=== PATIENT | male | born 1960 | race Caucasian/White ===

== ENCOUNTER 2018-04-13 19:01 | Emergency (ER) | payer MEDICARE ==
[~2018-04-13] VITALS: Ht 182.9 cm; Wt 104.3 kg
[2018-04-13 20:27] VITALS: BP 125/74
[2018-04-13] MEDS ORDERED: diphenhdrAMINE HCL 50 MG/1 ML VL ONE (20:57)
[2018-04-13] MEDS ORDERED: methylPREDNISolone SOD SUCC 125 MG/2 ML VL ONE (20:58)
[2018-04-13] MEDS ORDERED: diphenhdrAMINE HCL 50 MG/1 ML VL IM ONE (21:00)
[2018-04-13] MEDS ORDERED: methylPREDNISolone SOD SUCC 125 MG/2 ML VL IM ONE (21:00)
== END 2018-04-13 21:10 | disposition home or self-care (01) ==
LOC: ER 19:01
DX: S50.861A Insect bite (nonvenomous) of right forearm, initial encounter (principal); L29.8 Other pruritus; R21 Rash and other nonspecific skin eruption; W57.XXXA Bitten or stung by nonvenomous insect and other nonvenomous arthropods, initial encounter; Y93.89 Activity, other specified; Y99.8 Other external cause status; Y92.89 Other specified places as the place of occurrence of the external cause
CPT/HCPCS: 96372; 99284; J1200; J2930

== ENCOUNTER → 2019-01-02 | Outpatient (CLI) | payer MEDICARE ==
[2019-01-02 13:32] LABS: Basophils # (auto) 0.1 uL; Basophils % (auto) 1.2 % (0.0-2.0); Eosinophils # (auto) 0.3 uL; Eosinophils % (auto) 4.7 % (0.0-7.0); Hematocrit 39.1 % (41.0-53.0); Hemoglobin 13.2 g/dL (13.5-17.5); Lymphocytes # (auto) 1.7 uL; Lymphocytes % (auto) 31.8 % (10.0-50.0); Mean Corpuscular Hgb Conc. 33.8 g/dL (32.0-36.0); Monocytes # (auto) 0.5 uL; Neutrophils # (auto) 2.8 uL; Neutrophils % (auto) 53.3 % (37.0-80.0); Nucleated Red Blood Cells % 0.1 %; Platelet Count (auto) 294 10^3/uL (140-450); Red Blood Cells 4.71 10^6/uL (4.5-5.90); Red Cell Distribution Width 13.4 % (11.8-14.3); White Blood Cell 5.3 10^3/uL (4.4-10.8)
[2019-01-02 13:42] LABS: Urine Bacteria NONE SEEN /hpf (None Seen); Urine Blood Negative /uL (Negative); Urine WBC 1 /hpf (0 - 3)
[2019-01-02 13:43] LABS: Albumin 3.8 g/dL (3.4-5.0); Potassium 4.4 mmol/L (3.5-5.1)
[2019-01-02 13:47] LABS: BUN/Creatinine Ratio 14.1; Bilirubin, Total 0.8 mg/dL (0.2-1.0); Total Protein 7.4 g/dL (6.4-8.2)
[2019-01-02 15:03] LABS: Free T4 (Free Thyroxine) 1.01 ng/dL (0.89-1.76)
[2019-01-02 15:04] LABS: Folate (Folic Acid) 12.92 ng/mL (5.38-24)
== END | disposition home or self-care (01) ==
LOC: LAB 12:54
PROVIDERS: ATTEND Internal Medicine
DX: E10.10 Type 1 diabetes mellitus with ketoacidosis without coma (principal)
CPT/HCPCS: 36415; 80053; 80061; 81001; 82043; 82607; 82746; 84439; 84443; 85025; 86803

== ENCOUNTER → 2019-01-31 | Day surgery (SDC) | payer MEDICARE ==
[2019-01-28 13:05] LABS: Basophils # (auto) 0.1 uL; Eosinophils # (auto) 0.2 uL; Eosinophils % (auto) 2.4 % (0.0-7.0); Hematocrit 42.7 % (41.0-53.0); Hemoglobin 14.4 g/dL (13.5-17.5); INR 0.92 (0.9-1.15); Lymphocytes # (auto) 2.3 uL; Lymphocytes % (auto) 25.7 % (10.0-50.0); Mean Corpuscular Hemoglobin 28.3 pg (28.0-32.0); Mean Corpuscular Hgb Conc. 33.8 g/dL (32.0-36.0); Mean Corpuscular Volume 83.8 fL (80.0-100.0); Monocytes # (auto) 0.7 uL; Monocytes % (auto) 8.2 % (0.0-12.0); Neutrophils # (auto) 5.6 uL; Neutrophils % (auto) 62.7 % (37.0-80.0); Partial Thromboplastin Time 25.3 sec (23.64-32.05); Platelet Count (auto) 320 10^3/uL (140-450); Red Blood Cells 5.09 10^6/uL (4.5-5.90); Red Cell Distribution Width 14.1 % (11.8-14.3)
[~2019-01-31] VITALS: Ht 182.9 cm; Wt 90.7 kg
[~2019-01-31] MED LIST: FLUMAZENIL 0.1 MG/ML INJ 10ML MDV IV ONE; METF-371 PO; NALOXONE HCL 0.4 MG/ML VIAL ONE; SODIUM CHLORIDE LOCK 10 ML ONE; diphenhdrAMINE HCL 50 MG/1 ML VL ONE
[2019-01-31] MEDS: MIDAZOLAM HCL 5 MG/ML-1ML VIAL ONE ×3 (09:20→09:29)
[2019-01-31] MEDS: fentaNYL CITRATE 100 MCG/2 ML VL ONE ×3 (09:20→09:29)
[2019-01-31 10:15] VITALS: BP 110/78
== END | disposition home or self-care (01) ==
LOC: GI 07:58
PROVIDERS: ATTEND Internal Medicine Gastroenterology
DX: Z12.11 Encounter for screening for malignant neoplasm of colon (principal); K64.8 Other hemorrhoids; E11.9 Type 2 diabetes mellitus without complications; Z79.84 Long term (current) use of oral hypoglycemic drugs
CPT/HCPCS: 36415; 82962; 85025; 85610; 85730; G0121; J1200; J2250; J3010; J7030; 99152; 99153

== ENCOUNTER 2019-02-25 17:25 | Inpatient (IN) | payer MEDICARE | END 2019-02-28 14:00 | disposition home or self-care (01) | LOC: ER 17:25 → OVERFLOW 02-26 06:05 → WEST WING 02-26 08:19 | DX: L02.811 Cutaneous abscess of head [any part, except face] (principal); E11.65 Type 2 diabetes mellitus with hyperglycemia ==

== ENCOUNTER 2021-12-14 09:33 | Inpatient (IN) | payer MEDICARE ==
[~2021-12-14] VITALS: Ht 182.9 cm; Wt 91.2 kg
[~2021-12-14 09:33] MED LIST changes: -FLUMAZENIL 0.1 MG/ML INJ 10ML MDV IV ONE; -NALOXONE HCL 0.4 MG/ML VIAL ONE; -SODIUM CHLORIDE LOCK 10 ML ONE; -diphenhdrAMINE HCL 50 MG/1 ML VL ONE
[2021-12-14] MEDS ORDERED: SODIUM CHLORIDE 0.9% 1,000 ML IVB ONE (11:45)
[2021-12-14 12:13] LABS: Basophils # (auto) 0.1 10 ^3/uL (0-0.2); Basophils % (auto) 0.7 % (0.0-2.0); Eosinophils # (auto) 0.2 10 ^3/uL (0-0.8); Eosinophils % (auto) 1.8 % (0.0-7.0); Hematocrit 36.8 % (41.0-53.0); Hemoglobin 12.3 g/dL (13.5-17.5); Lymphocytes # (auto) 1.2 10 ^3/uL (0.4-5.4); Lymphocytes % (auto) 13.6 % (10.0-50.0); Mean Corpuscular Hemoglobin 28.2 pg (28.0-32.0); Mean Corpuscular Hgb Conc. 33.5 g/dL (32.0-36.0); Mean Corpuscular Volume 84.1 fL (80.0-100.0); Monocytes # (auto) 0.9 10 ^3/uL (0-1.3); Monocytes % (auto) 10.2 % (0.0-12.0); Neutrophils # (auto) 6.3 10 ^3/uL (1.6-8.6); Neutrophils % (auto) 73.7 % (37.0-80.0); Red Blood Cells 4.37 10^6/uL (4.5-5.90); White Blood Cell 8.5 10^3/uL (4.4-10.8)
[2021-12-14 12:25] LABS: Albumin 3.5 g/dL (3.4-5.0); Calcium 9.3 mg/dL (8.5-10.1); Magnesium 2.3 mg/dL (1.6-2.6); Potassium 4.4 mmol/L (3.5-5.1)
[2021-12-14 12:28] LABS: BUN/Creatinine Ratio 13.6; Bilirubin, Total 0.9 mg/dL (0.2-1.0); Total Protein 8.1 g/dL (6.4-8.2)
[2021-12-14 14:34] LABS: Urine Bacteria FEW /hpf (None Seen); Urine Blood 1+ /uL (Negative); Urine Specific Gravity 1.031 (1.001-1.035); Urine WBC 1 /hpf (0 - 3)
[2021-12-14] MEDS ORDERED: CLINDAMYCIN 900MG IV 50 ML IV ONE (15:30)
[2021-12-14] MEDS ORDERED: ONDANSETRON HCL 4 MG/2 ML VIAL IV PRN (17:30)
[2021-12-14] MEDS ORDERED: DEXTROSE (50%) 50ML SYRG IV PRN (17:30)
[2021-12-14] MEDS ORDERED: FUROSEMIDE 100 MG/10ML VIAL IV ONE (17:45)
[2021-12-14] MEDS ORDERED: SODIUM CHLORIDE 0.9% 1,000 ML IV ONE (17:45)
[2021-12-14] MEDS ORDERED: cefTRIAXone 1GM/50ML D5W 50 ML IV ONE (17:45)
[2021-12-14] MEDS ORDERED: PIPERACILLIN-TAZOB 3.375GM 100 ML IV ONE (17:45)
[2021-12-14 19:03] LABS: INR 1.05 (0.9-1.15)
[2021-12-14 19:20] LABS: Cholesterol 133 mg/dL (< 200); HDL Cholesterol 49 mg/dL (40-59); LDL Cholesterol 83 mg/dL (< 100); Triglycerides 70 mg/dL (< 150)
[2021-12-14] MEDS: ACCU-CHEK COMFORT CURVE STRIP VI SCH (21:42)
[2021-12-14] MEDS: MORPHINE SULFATE 4 MG/ML SYR/VIAL IV PRN (21:42)
[2021-12-14 22:00] VITALS: BP 124/81
[2021-12-14] MEDS: InsuLIN REG 1unit/0.01ml Soln (100units/ml) SC SCH (22:05)
[2021-12-15] MEDS: PIPERACILLIN-TAZOB 3.375GM 100 ML IV SCH ×3 (02:28→19:00)
[2021-12-15 05:00] VITALS: BP 123/78
[2021-12-15] MEDS: ACCU-CHEK COMFORT CURVE STRIP VI SCH ×3 (06:46→18:30)
[2021-12-15] MEDS: InsuLIN REG 1unit/0.01ml Soln (100units/ml) SC SCH ×3 (06:52→18:30)
[2021-12-15 07:22] LABS: Basophils # (auto) 0.1 10 ^3/uL (0-0.2); Basophils % (auto) 1.2 % (0.0-2.0); Eosinophils # (auto) 0.2 10 ^3/uL (0-0.8); Hematocrit 35.7 % (41.0-53.0); Hemoglobin 12.1 g/dL (13.5-17.5); Lymphocytes # (auto) 1.4 10 ^3/uL (0.4-5.4); Lymphocytes % (auto) 13.7 % (10.0-50.0); Mean Corpuscular Hgb Conc. 33.7 g/dL (32.0-36.0); Mean Corpuscular Volume 82.9 fL (80.0-100.0); Monocytes % (auto) 9.7 % (0.0-12.0); Neutrophils # (auto) 7.3 10 ^3/uL (1.6-8.6); Neutrophils % (auto) 73.4 % (37.0-80.0); Red Blood Cells 4.31 10^6/uL (4.5-5.90); Red Cell Distribution Width 13.8 % (11.8-14.3); White Blood Cell 9.9 10^3/uL (4.4-10.8)
[2021-12-15 07:39] LABS: Albumin 3.2 g/dL (3.4-5.0); Potassium 4.5 mmol/L (3.5-5.1)
[2021-12-15 07:42] LABS: BUN/Creatinine Ratio 15.7; Bilirubin, Total 1.2 mg/dL (0.2-1.0); Total Protein 7.5 g/dL (6.4-8.2)
[2021-12-15] MEDS: MORPHINE SULFATE 4 MG/ML SYR/VIAL IV PRN (07:48)
[2021-12-15 08:30] VITALS: BP 132/64
[2021-12-15] MEDS ORDERED: cefTRIAXone 1GM/50ML D5W 50 ML IV SCH (09:00)
[2021-12-15] MEDS ORDERED: FUROSEMIDE 40 MG/4 ML VIAL IV SCH (10:00)
[2021-12-15] MEDS: ENOXAPARIN SOD 40 MG/0.4 ML SYRINGE SC SCH (10:27)
[2021-12-15 12:30] VITALS: BP 109/64
[2021-12-15 16:48] VITALS: BP 115/70
[2021-12-15 22:00] VITALS: BP 105/45
[2021-12-16] MEDS: ACCU-CHEK COMFORT CURVE STRIP VI SCH ×5 (00:15→22:43)
[2021-12-16] MEDS: InsuLIN REG 1unit/0.01ml Soln (100units/ml) SC SCH ×5 (00:15→22:48)
[2021-12-16] MEDS: PIPERACILLIN-TAZOB 3.375GM 100 ML IV SCH ×3 (03:36→18:40)
[2021-12-16 04:11] LABS: Alcohol, Urine < 3.0 mg/dL (0-10); Amphetamine Screen, Urine POSITIVE (NEGATIVE); Barbiturate Scree,Urine NEGATIVE (NEGATIVE); Benzodiazephine Screen, Urine NEGATIVE (NEGATIVE); Cannabinoid Screen, Urine POSITIVE (NEGATIVE); Cocaine Screen, Urine NEGATIVE (NEGATIVE); Phencyclidine Screen, Urine NEGATIVE (NEGATIVE)
[2021-12-16 04:18] LABS: Opiate Scree,Urine NEGATIVE (NEGATIVE)
[2021-12-16 08:05] VITALS: BP 138/96
[2021-12-16] MEDS: ENOXAPARIN SOD 40 MG/0.4 ML SYRINGE SC SCH (09:50)
[2021-12-16 11:55] VITALS: BP 107/63
[2021-12-16 16:05] VITALS: BP 115/77
[2021-12-16] MEDS ORDERED: PROPOFOL 10 MG/ML 20 ML IV ONE (16:27)
[2021-12-16] MEDS ORDERED: MIDAZOLAM HCL 2MG/2ML 2ml VIAL (1mg/ml) ONE (16:27)
[2021-12-16] MEDS ORDERED: GLYCOPYRROLATE 0.2 MG/ML 1ML VIAL ONE (16:27)
[2021-12-16] MEDS ORDERED: KETAMINE HCL 10 ML ONE (16:27)
[2021-12-16] MEDS ORDERED: ONDANSETRON HCL 4 MG/2 ML VIAL ONE (16:27)
[2021-12-16] MEDS ORDERED: ceFAZolin 1GM/50ML 100 ML IV ONE (16:45)
[2021-12-16] MEDS ORDERED: BUPIVACAINE HCL 50 ML ONE (16:55)
[2021-12-16] MEDS ORDERED: ceFAZolin 1GM VL ONE (16:55)
[2021-12-16] MEDS ORDERED: NEOMYCIN-BACITRACIN-POLYM 15GM TOP OINT TOP ONE (17:36)
[2021-12-16] MEDS ORDERED: ACCU-CHEK COMFORT CURVE STRIP VI ONE (18:00)
[2021-12-16] MEDS ORDERED: ONDANSETRON HCL 4 MG/2 ML VIAL IV PRN (18:00)
[2021-12-16] MEDS ORDERED: HYDROmorphone HCL 2 MG/ML VL IV PRN (18:00)
[2021-12-16 21:32] VITALS: BP 110/75
[2021-12-17] MEDS: PIPERACILLIN-TAZOB 3.375GM 100 ML IV SCH ×3 (02:15→18:31)
[2021-12-17 05:00] VITALS: BP 97/51
[2021-12-17] MEDS: InsuLIN REG 1unit/0.01ml Soln (100units/ml) SC SCH ×3 (06:36→16:55)
[2021-12-17] MEDS: ACCU-CHEK COMFORT CURVE STRIP VI SCH ×3 (06:36→16:50)
[2021-12-17 08:00] VITALS: BP 124/77
[2021-12-17] MEDS: ENOXAPARIN SOD 40 MG/0.4 ML SYRINGE SC SCH (08:10)
[2021-12-17 12:00] VITALS: BP 121/68
[2021-12-17 16:10] VITALS: BP 103/55
[2021-12-17 22:00] VITALS: BP 129/75
[2021-12-18] MEDS: ACCU-CHEK COMFORT CURVE STRIP VI SCH ×5 (01:18→22:01)
[2021-12-18] MEDS: InsuLIN REG 1unit/0.01ml Soln (100units/ml) SC SCH ×5 (01:26→22:02)
[2021-12-18 05:00] VITALS: BP 115/70
[2021-12-18] MEDS: PIPERACILLIN-TAZOB 3.375GM 100 ML IV SCH ×3 (05:00→18:00)
[2021-12-18] MEDS: ENOXAPARIN SOD 40 MG/0.4 ML SYRINGE SC SCH (09:41)
[2021-12-18] MEDS ORDERED: INSULIN LANTUS (GLARGINE) 1 /0.01ml (100units/ml) SC ONE (15:30)
[2021-12-18 17:00] VITALS: BP 132/78
[2021-12-18 22:00] VITALS: BP 121/70
[2021-12-19] MEDS: PIPERACILLIN-TAZOB 3.375GM 100 ML IV SCH ×3 (02:41→18:10)
[2021-12-19 05:00] VITALS: BP 115/76
[2021-12-19 05:15] LABS: Basophils # (auto) 0.1 10 ^3/uL (0-0.2); Basophils % (auto) 0.5 % (0.0-2.0); Eosinophils # (auto) 0.2 10 ^3/uL (0-0.8); Eosinophils % (auto) 2.2 % (0.0-7.0); Hematocrit 35.3 % (41.0-53.0); Hemoglobin 11.8 g/dL (13.5-17.5); Lymphocytes # (auto) 1.4 10 ^3/uL (0.4-5.4); Lymphocytes % (auto) 13.2 % (10.0-50.0); Mean Corpuscular Hemoglobin 27.6 pg (28.0-32.0); Mean Corpuscular Hgb Conc. 33.3 g/dL (32.0-36.0); Mean Corpuscular Volume 82.8 fL (80.0-100.0); Monocytes # (auto) 1.3 10 ^3/uL (0-1.3); Monocytes % (auto) 12.2 % (0.0-12.0); Neutrophils # (auto) 7.8 10 ^3/uL (1.6-8.6); Neutrophils % (auto) 71.9 % (37.0-80.0); Nucleated Red Blood Cells % 0.1 %; Red Blood Cells 4.27 10^6/uL (4.5-5.90); Red Cell Distribution Width 13.9 % (11.8-14.3); White Blood Cell 10.9 10^3/uL (4.4-10.8)
[2021-12-19 05:47] LABS: Potassium 4.3 mmol/L (3.5-5.1)
[2021-12-19 05:53] LABS: BUN/Creatinine Ratio 14.3; Calcium 8.8 mg/dL (8.5-10.1)
[2021-12-19] MEDS: InsuLIN REG 1unit/0.01ml Soln (100units/ml) SC SCH ×4 (06:51→22:15)
[2021-12-19] MEDS: INSULIN LANTUS (GLARGINE) 1 /0.01ml (100units/ml) SC SCH (06:52)
[2021-12-19] MEDS: ACCU-CHEK COMFORT CURVE STRIP VI SCH ×4 (07:00→22:09)
[2021-12-19 09:00] VITALS: BP 115/70
[2021-12-19] MEDS: ENOXAPARIN SOD 40 MG/0.4 ML SYRINGE SC SCH (11:02)
[2021-12-19 13:00] VITALS: BP 101/61
[2021-12-19 13:38] LABS: Hepatitis C Antibody Negative (Negative)
[2021-12-19] MEDS ORDERED: ERGOCALCIFEROL 50,000 UNIT(1.25MG) CAP PO SCH (14:00)
[2021-12-19 14:33] LABS: INR 1.12 (0.9-1.15); Partial Thromboplastin Time 32.5 sec (23.6-33.0)
[2021-12-19 17:00] VITALS: BP 111/64
[2021-12-19] MEDS ORDERED: HYDROcodone-ACET 5/325MG TAB PO PRN (21:00)
[2021-12-19 22:00] VITALS: BP 106/62
[2021-12-20] MEDS: PIPERACILLIN-TAZOB 3.375GM 100 ML IV SCH ×2 (03:09→11:21)
[2021-12-20 04:33] VITALS: BP 102/65
[2021-12-20] MEDS: ACCU-CHEK COMFORT CURVE STRIP VI SCH ×3 (06:30→17:00)
[2021-12-20] MEDS: InsuLIN REG 1unit/0.01ml Soln (100units/ml) SC SCH ×3 (06:30→17:00)
[2021-12-20] MEDS: INSULIN LANTUS (GLARGINE) 1 /0.01ml (100units/ml) SC SCH (06:31)
[2021-12-20 08:45] VITALS: BP 108/67
[2021-12-20] MEDS: ENOXAPARIN SOD 40 MG/0.4 ML SYRINGE SC SCH (11:20)
[2021-12-20] MEDS ORDERED: LIDOCAINE 1% (LOCAL ANESTH.) PF 5ml SDV ID ONE (14:45)
[2021-12-20 16:23] VITALS: BP 113/76
[2021-12-20 16:35] VITALS: BP 131/76
[2021-12-20] MEDS ORDERED: SODIUM CHLOR 0.9% PF (SALINE LOCK) 10ML VIAL/SYR IV SCH (22:00)
== END 2021-12-20 18:13 | DRG 617 ==
LOC: ER 09:33 → WEST WING 17:25
PROVIDERS: ADMIT Registered Nurse; ATTEND Internal Medicine
PROC: 0Y6P0Z3 Detachment at Right 1st Toe, Low, Open Approach (ICD-10-PCS; principal; 2021-12-20)
PROC: 05HB33Z Insertion of Infusion Device into Right Basilic Vein, Percutaneous Approach (ICD-10-PCS; 2021-12-20)
DX: E11.621 Type 2 diabetes mellitus with foot ulcer (principal); L03.115 Cellulitis of right lower limb; M86.8X7 Other osteomyelitis, ankle and foot; L03.116 Cellulitis of left lower limb; H91.93 Unspecified hearing loss, bilateral; M19.90 Unspecified osteoarthritis, unspecified site; E11.65 Type 2 diabetes mellitus with hyperglycemia; E55.9 Vitamin D deficiency, unspecified; E11.69 Type 2 diabetes mellitus with other specified complication; F12.90 Cannabis use, unspecified, uncomplicated; J44.9 Chronic obstructive pulmonary disease, unspecified; L97.519 Non-pressure chronic ulcer of other part of right foot with unspecified severity; F19.10 Other psychoactive substance abuse, uncomplicated; Z91.19 Patient's noncompliance with other medical treatment and regimen; Z20.822 Contact with and (suspected) exposure to COVID-19
CPT/HCPCS: 36415; 36569; 71046; 73630; 73718; 80048; 80053; 80061; 80307; 81001; 82306; 82962; 83036; 83605; 83690; 83735; 83880; 84443; 85025; 85610; 85730; 86803; 87040; 87070; 87075; 87077; 87186; 87205; 87340; 93005; 96361; 96365; G0378; J0690; J1815; J2250; J2405; J2543; J2704; J3490

== ENCOUNTER 2021-12-21 22:42 | Emergency (ER) | payer MEDICARE ==
[~2021-12-21] VITALS: Ht 182.9 cm; Wt 93.4 kg
[2021-12-22] MEDS ORDERED: KETOROLAC TROMETH 60MG/2ML VIAL IM ONE (00:15)
[2021-12-22 09:00] VITALS: BP 114/77
== END 2021-12-22 10:42 | disposition home or self-care (01) ==
LOC: EDBD 22:42 → ER 22:42
DX: M25.511 Pain in right shoulder (principal)
CPT/HCPCS: 96372; 99285; J1885

== ENCOUNTER 2022-01-24 17:59 | Inpatient (IN) | payer MEDICARE ==
[~2022-01-24] VITALS: Ht 185.4 cm; Wt 92.6 kg
[2022-01-24 19:34] LABS: Basophils # (auto) 0.1 10 ^3/uL (0-0.2); Basophils % (auto) 1.1 % (0.0-2.0); Eosinophils # (auto) 0.2 10 ^3/uL (0-0.8); Eosinophils % (auto) 3.9 % (0.0-7.0); Hematocrit 34.5 % (41.0-53.0); Hemoglobin 11.7 g/dL (13.5-17.5); Lymphocytes # (auto) 1.4 10 ^3/uL (0.4-5.4); Lymphocytes % (auto) 22.7 % (10.0-50.0); Mean Corpuscular Hemoglobin 27.5 pg (28.0-32.0); Mean Corpuscular Hgb Conc. 33.9 g/dL (32.0-36.0); Mean Corpuscular Volume 81.3 fL (80.0-100.0); Monocytes # (auto) 0.7 10 ^3/uL (0-1.3); Monocytes % (auto) 10.9 % (0.0-12.0); Neutrophils # (auto) 3.8 10 ^3/uL (1.6-8.6); Neutrophils % (auto) 61.4 % (37.0-80.0); Nucleated Red Blood Cells % 0.1 %; Red Blood Cells 4.24 10^6/uL (4.5-5.90); Red Cell Distribution Width 14.3 % (11.8-14.3); White Blood Cell 6.2 10^3/uL (4.4-10.8)
[2022-01-24 19:49] LABS: Albumin 3.6 g/dL (3.4-5.0); Potassium 4.5 mmol/L (3.5-5.1)
[2022-01-24 19:53] LABS: Bilirubin, Total 1.8 mg/dL (0.2-1.0); Total Protein 7.7 g/dL (6.4-8.2)
[2022-01-24 21:28] LABS: INR 1.07 (0.9-1.15)
[2022-01-25] MEDS ORDERED: VANCOMYCIN 1GM/250ML 250 ML IV ONE ×2 (01:30→17:06)
[2022-01-25] MEDS ORDERED: cefTRIAXone 1GM/50ML D5W 50 ML IV ONE (01:30)
[2022-01-25] MEDS ORDERED: ONDANSETRON HCL 4 MG/2 ML VIAL IV PRN (02:00)
[2022-01-25] MEDS ORDERED: VANCOMYCIN PER PHARMACY 0 MG IV SCH (02:00)
[2022-01-25] MEDS ORDERED: DEXTROSE (50%) 50ML SYRG IV PRN (02:00)
[2022-01-25] MEDS: SODIUM CHLORIDE 0.9% 1,000 ML IV SCH ×2 (02:28→04:57)
[2022-01-25 04:29] LABS: Urine Bacteria NONE SEEN /hpf (None Seen); Urine Blood 2+ /uL (Negative); Urine Mucus FEW (None Seen); Urine Specific Gravity 1.024 (1.001-1.035); Urine WBC 1 /hpf (0 - 3)
[2022-01-25] MEDS ORDERED: LEVO-28 PO (04:31)
[2022-01-25 05:00] VITALS: BP 113/71
[2022-01-25 05:11] VITALS: BP 113/71
[2022-01-25] MEDS ORDERED: INSREG3 SC (05:13)
[2022-01-25] MEDS: ACCU-CHEK COMFORT CURVE STRIP VI SCH ×3 (06:00→17:22)
[2022-01-25] MEDS: InsuLIN REG 1unit/0.01ml Soln (100units/ml) SC SCH ×3 (06:58→17:22)
[2022-01-25] MEDS: PANTOPRAZOLE 40 MG/10 ML VIAL INJ IV SCH (08:54)
[2022-01-25 09:00] VITALS: BP 119/78
[2022-01-25] MEDS: ceFAZolin 1GM VL ONE ×2 (09:08→10:20)
[2022-01-25] MEDS: ROPIVACAINE 0.5% (5MG/ML) 20ML AMPULE IJ ONE ×2 (09:09→10:15)
[2022-01-25] MEDS: ceFAZolin 1GM/50ML 100 ML IV ONE ×2 (09:23→09:31)
[2022-01-25] MEDS ORDERED: MEPERIDINE HCL (25 MG/ML) 1ML VIAL ONE (09:35)
[2022-01-25] MEDS ORDERED: MIDAZOLAM HCL 2MG/2ML 2ml VIAL (1mg/ml) ONE (09:36)
[2022-01-25] MEDS ORDERED: fentaNYL CITRATE 100 MCG/2 ML VL ONE (09:36)
[2022-01-25] MEDS ORDERED: DexAMETHasone SOD PHOS 10MG/1ML VIAL INJ ONE (10:09)
[2022-01-25] MEDS ORDERED: PROPOFOL 10 MG/ML 20 ML IV ONE (10:09)
[2022-01-25] MEDS ORDERED: NEOMYCIN-BACITRACIN-POLYM 15GM TOP OINT TOP ONE (10:12)
[2022-01-25] MEDS ORDERED: PHENYLEPHRINE HCL 10 MG/ML VL IV ONE (12:47)
[2022-01-25 13:34] LABS: Basophils # (auto) 0.1 10 ^3/uL (0-0.2); Basophils % (auto) 1.9 % (0.0-2.0); Eosinophils # (auto) 0.2 10 ^3/uL (0-0.8); Eosinophils % (auto) 3.7 % (0.0-7.0); Hematocrit 32.7 % (41.0-53.0); Lymphocytes # (auto) 1.2 10 ^3/uL (0.4-5.4); Lymphocytes % (auto) 22.7 % (10.0-50.0); Mean Corpuscular Hemoglobin 27.3 pg (28.0-32.0); Mean Corpuscular Hgb Conc. 33.7 g/dL (32.0-36.0); Monocytes # (auto) 0.7 10 ^3/uL (0-1.3); Monocytes % (auto) 12.1 % (0.0-12.0); Neutrophils # (auto) 3.3 10 ^3/uL (1.6-8.6); Neutrophils % (auto) 59.6 % (37.0-80.0); Nucleated Red Blood Cells % 0.1 %; Red Blood Cells 4.04 10^6/uL (4.5-5.90); Red Cell Distribution Width 14.1 % (11.8-14.3); White Blood Cell 5.5 10^3/uL (4.4-10.8)
[2022-01-25] MEDS: VANCOMYCIN 1GM/250ML 250 ML IV SCH (17:18)
[2022-01-25 17:51] VITALS: BP 132/74
[2022-01-25] MEDS: MORPHINE SULFATE INJ 2 MG/ml SYRG IV PRN (19:20)
[2022-01-25 22:00] VITALS: BP 119/63
[2022-01-25] MEDS ORDERED: cefTRIAXone 1GM/50ML D5W 50 ML IV SCH (22:00)
[2022-01-26] MEDS: ACCU-CHEK COMFORT CURVE STRIP VI SCH ×5 (00:23→23:38)
[2022-01-26] MEDS: InsuLIN REG 1unit/0.01ml Soln (100units/ml) SC SCH ×5 (00:24→23:38)
[2022-01-26] MEDS: SODIUM CHLORIDE 0.9% 1,000 ML IV SCH ×2 (03:54→17:58)
[2022-01-26] MEDS: VANCOMYCIN 1GM/250ML 250 ML IV SCH ×2 (04:37→17:41)
[2022-01-26 05:00] VITALS: BP 122/72
[2022-01-26 06:00] LABS: Basophils # (auto) 0.1 10 ^3/uL (0-0.2); Basophils % (auto) 0.6 % (0.0-2.0); Eosinophils # (auto) 0.2 10 ^3/uL (0-0.8); Eosinophils % (auto) 1.7 % (0.0-7.0); Hematocrit 32.8 % (41.0-53.0); Hemoglobin 11.3 g/dL (13.5-17.5); Lymphocytes % (auto) 10.3 % (10.0-50.0); Mean Corpuscular Hemoglobin 27.9 pg (28.0-32.0); Mean Corpuscular Hgb Conc. 34.5 g/dL (32.0-36.0); Mean Corpuscular Volume 80.8 fL (80.0-100.0); Monocytes # (auto) 1.1 10 ^3/uL (0-1.3); Monocytes % (auto) 11.8 % (0.0-12.0); Neutrophils # (auto) 7.1 10 ^3/uL (1.6-8.6); Neutrophils % (auto) 75.6 % (37.0-80.0); Nucleated Red Blood Cells % 0.1 %; Red Blood Cells 4.06 10^6/uL (4.5-5.90); Red Cell Distribution Width 14.1 % (11.8-14.3); White Blood Cell 9.5 10^3/uL (4.4-10.8)
[2022-01-26 06:18] LABS: Albumin 2.9 g/dL (3.4-5.0); BUN/Creatinine Ratio 14.3; Calcium 8.5 mg/dL (8.5-10.1); Potassium 4.8 mmol/L (3.5-5.1)
[2022-01-26 06:21] LABS: Bilirubin, Total 0.9 mg/dL (0.2-1.0); Total Protein 6.7 g/dL (6.4-8.2)
[2022-01-26] MEDS: PANTOPRAZOLE 40 MG/10 ML VIAL INJ IV SCH (08:15)
[2022-01-26 08:30] VITALS: BP 110/70
[2022-01-26] MEDS: MORPHINE SULFATE INJ 2 MG/ml SYRG IV PRN ×2 (08:49→14:08)
[2022-01-26 12:30] VITALS: BP 120/75
[2022-01-26] MEDS ORDERED: LIDOCAINE 1% (LOCAL ANESTH.) PF 5ml SDV ID ONE (12:45)
[2022-01-26 16:30] VITALS: BP 127/86
[2022-01-26 22:00] VITALS: BP 106/66
[2022-01-26] MEDS: SODIUM CHLOR 0.9% PF (SALINE LOCK) 10ML VIAL/SYR IV SCH (22:00)
[2022-01-26] MEDS: CEFTRIAXONE SODIUM 2 GM in D5W 5% 50 ML IV SCH (23:23)
[2022-01-27] MEDS: VANCOMYCIN 1GM/250ML 250 ML IV SCH ×3 (03:08→23:11)
[2022-01-27 05:00] VITALS: BP 98/59
[2022-01-27] MEDS: ACCU-CHEK COMFORT CURVE STRIP VI SCH ×3 (06:00→17:04)
[2022-01-27] MEDS: InsuLIN REG 1unit/0.01ml Soln (100units/ml) SC SCH ×3 (06:35→17:10)
[2022-01-27] MEDS: PANTOPRAZOLE 40 MG/10 ML VIAL INJ IV SCH (09:33)
[2022-01-27] MEDS: SODIUM CHLOR 0.9% PF (SALINE LOCK) 10ML VIAL/SYR IV SCH ×2 (09:34→21:46)
[2022-01-27] MEDS: SODIUM CHLORIDE 0.9% 1,000 ML IV SCH ×2 (09:35→21:58)
[2022-01-27 13:00] VITALS: BP 127/82
[2022-01-27 17:00] VITALS: BP 146/82
[2022-01-27] MEDS: MORPHINE SULFATE INJ 2 MG/ml SYRG IV PRN (20:23)
[2022-01-27] MEDS ORDERED: cefTRIAXone 1GM/50ML D5W 0 ML IV ONE (21:49)
[2022-01-27] MEDS: CEFTRIAXONE SODIUM 2 GM in D5W 5% 50 ML IV SCH (21:51)
[2022-01-27 22:00] VITALS: BP 112/66
[2022-01-28] MEDS: InsuLIN REG 1unit/0.01ml Soln (100units/ml) SC SCH ×5 (00:54→23:25)
[2022-01-28 05:00] VITALS: BP 110/67
[2022-01-28] MEDS: ACCU-CHEK COMFORT CURVE STRIP VI SCH ×5 (06:13→23:24)
[2022-01-28 08:00] VITALS: BP 100/50
[2022-01-28] MEDS: SODIUM CHLOR 0.9% PF (SALINE LOCK) 10ML VIAL/SYR IV SCH ×2 (08:41→23:24)
[2022-01-28] MEDS: VANCOMYCIN 1GM/250ML 250 ML IV SCH ×2 (08:41→18:58)
[2022-01-28] MEDS: SODIUM CHLORIDE 0.9% 1,000 ML IV SCH ×2 (08:41→23:39)
[2022-01-28] MEDS: PANTOPRAZOLE 40 MG/10 ML VIAL INJ IV SCH (08:41)
[2022-01-28 12:00] VITALS: BP 112/65
[2022-01-28] MEDS: MORPHINE SULFATE INJ 2 MG/ml SYRG IV PRN (14:32)
[2022-01-28 16:00] VITALS: BP 98/55
[2022-01-28 22:00] VITALS: BP 115/70
[2022-01-28] MEDS: CEFTRIAXONE SODIUM 2 GM in D5W 5% 50 ML IV SCH (23:24)
[2022-01-29] MEDS: VANCOMYCIN 1GM/250ML 250 ML IV SCH ×2 (04:57→15:00)
[2022-01-29 05:00] VITALS: BP 124/79
[2022-01-29] MEDS: InsuLIN REG 1unit/0.01ml Soln (100units/ml) SC SCH ×4 (06:00→23:18)
[2022-01-29] MEDS: ACCU-CHEK COMFORT CURVE STRIP VI SCH ×4 (06:37→23:17)
[2022-01-29 08:00] VITALS: BP 103/62
[2022-01-29] MEDS: SODIUM CHLOR 0.9% PF (SALINE LOCK) 10ML VIAL/SYR IV SCH ×2 (10:25→21:08)
[2022-01-29] MEDS: PANTOPRAZOLE 40 MG/10 ML VIAL INJ IV SCH (10:25)
[2022-01-29 12:00] VITALS: BP 118/64
[2022-01-29] MEDS: SODIUM CHLORIDE 0.9% 1,000 ML IV SCH (12:51)
[2022-01-29 16:00] VITALS: BP 117/65
[2022-01-29] MEDS: CEFTRIAXONE SODIUM 2 GM in D5W 5% 50 ML IV SCH (21:08)
[2022-01-29 22:00] VITALS: BP 109/70
[2022-01-30] MEDS: SODIUM CHLORIDE 0.9% 1,000 ML IV SCH ×2 (00:01→15:20)
[2022-01-30] MEDS: VANCOMYCIN 1GM/250ML 250 ML IV SCH ×3 (00:01→20:51)
[2022-01-30 05:00] VITALS: BP 127/76
[2022-01-30] MEDS: ACCU-CHEK COMFORT CURVE STRIP VI SCH ×3 (05:05→17:08)
[2022-01-30] MEDS: InsuLIN REG 1unit/0.01ml Soln (100units/ml) SC SCH ×3 (05:06→17:07)
[2022-01-30] MEDS: PANTOPRAZOLE 40 MG/10 ML VIAL INJ IV SCH (09:40)
[2022-01-30] MEDS: SODIUM CHLOR 0.9% PF (SALINE LOCK) 10ML VIAL/SYR IV SCH ×2 (09:42→21:09)
[2022-01-30 13:00] VITALS: BP 117/65
[2022-01-30 22:00] VITALS: BP 114/74
[2022-01-30] MEDS: CEFTRIAXONE SODIUM 2 GM in D5W 5% 50 ML IV SCH (22:13)
[2022-01-31] MEDS: ACCU-CHEK COMFORT CURVE STRIP VI SCH ×5 (00:24→23:45)
[2022-01-31] MEDS: InsuLIN REG 1unit/0.01ml Soln (100units/ml) SC SCH ×4 (00:25→17:57)
[2022-01-31] MEDS: SODIUM CHLORIDE 0.9% 1,000 ML IV SCH ×2 (04:40→17:48)
[2022-01-31 05:00] VITALS: BP 144/81
[2022-01-31 05:04] LABS: Basophils # (auto) 0 10 ^3/uL (0-0.2); Basophils % (auto) 0.8 % (0.0-2.0); Eosinophils # (auto) 0.3 10 ^3/uL (0-0.8); Eosinophils % (auto) 4.3 % (0.0-7.0); Hemoglobin 10.5 g/dL (13.5-17.5); Lymphocytes # (auto) 1.3 10 ^3/uL (0.4-5.4); Lymphocytes % (auto) 21.7 % (10.0-50.0); Mean Corpuscular Hemoglobin 27.2 pg (28.0-32.0); Mean Corpuscular Hgb Conc. 33.8 g/dL (32.0-36.0); Mean Corpuscular Volume 80.5 fL (80.0-100.0); Monocytes # (auto) 0.7 10 ^3/uL (0-1.3); Monocytes % (auto) 11.3 % (0.0-12.0); Neutrophils # (auto) 3.8 10 ^3/uL (1.6-8.6); Neutrophils % (auto) 61.9 % (37.0-80.0); Nucleated Red Blood Cells % 0.1 %; Red Blood Cells 3.85 10^6/uL (4.5-5.90); Red Cell Distribution Width 14.1 % (11.8-14.3); White Blood Cell 6.1 10^3/uL (4.4-10.8)
[2022-01-31 05:18] LABS: Potassium 3.9 mmol/L (3.5-5.1)
[2022-01-31 05:24] LABS: BUN/Creatinine Ratio 17.6; Calcium 8.8 mg/dL (8.5-10.1)
[2022-01-31 09:00] VITALS: BP 112/70
[2022-01-31 13:00] VITALS: BP 112/60
[2022-01-31] MEDS: SODIUM CHLOR 0.9% PF (SALINE LOCK) 10ML VIAL/SYR IV SCH ×2 (13:10→22:20)
[2022-01-31] MEDS: VANCOMYCIN 1GM/250ML 250 ML IV SCH (17:47)
[2022-01-31 22:00] VITALS: BP 126/89
[2022-01-31] MEDS: CEFTRIAXONE SODIUM 2 GM in D5W 5% 50 ML IV SCH (22:29)
[2022-02-01] MEDS: MORPHINE SULFATE INJ 2 MG/ml SYRG IV PRN (00:29)
[2022-02-01] MEDS: InsuLIN REG 1unit/0.01ml Soln (100units/ml) SC SCH ×5 (00:29→23:51)
[2022-02-01 05:00] VITALS: BP 115/69
[2022-02-01] MEDS: ACCU-CHEK COMFORT CURVE STRIP VI SCH ×4 (05:24→23:44)
[2022-02-01] MEDS: SODIUM CHLORIDE 0.9% 1,000 ML IV SCH ×2 (06:44→20:40)
[2022-02-01 08:45] LABS: BUN/Creatinine Ratio 19.6; Calcium 8.8 mg/dL (8.5-10.1); Potassium 4.2 mmol/L (3.5-5.1)
[2022-02-01 09:00] VITALS: BP 126/73
[2022-02-01] MEDS: SODIUM CHLOR 0.9% PF (SALINE LOCK) 10ML VIAL/SYR IV SCH ×2 (10:17→22:01)
[2022-02-01 13:49] VITALS: BP 135/87
[2022-02-01 17:00] VITALS: BP 129/76
[2022-02-01] MEDS: VANCOMYCIN 1GM/250ML 250 ML IV SCH (17:56)
[2022-02-01 22:00] VITALS: BP 115/69
[2022-02-01] MEDS: CEFTRIAXONE SODIUM 2 GM in D5W 5% 50 ML IV SCH (22:01)
[2022-02-02 05:00] VITALS: BP 114/72
[2022-02-02] MEDS: ACCU-CHEK COMFORT CURVE STRIP VI SCH (05:28)
[2022-02-02] MEDS: InsuLIN REG 1unit/0.01ml Soln (100units/ml) SC SCH (05:28)
[2022-02-02 09:00] VITALS: BP 118/75
[2022-02-02] MEDS ORDERED: CEFTRIAXONE SODIUM 2 GM in D5W 5% 50 ML IV ONE (09:00)
[2022-02-02] MEDS ORDERED: ROC2INJ10 IV (09:41)
[2022-02-03] MEDS ORDERED: CEFTRIAXONE SODIUM 2 GM in D5W 5% 50 ML IV SCH (10:00)
== END 2022-02-02 11:42 | disposition home health service (06) | DRG 856 ==
LOC: ER 17:59 → OVERFLOW 01-25 01:54 → CENTRAL 01-25 04:24
PROVIDERS: ADMIT Nurse Practitioner; ATTEND Family Medicine
PROC: 0Y6P0Z0 Detachment at Right 1st Toe, Complete, Open Approach (ICD-10-PCS; principal; 2022-01-25 09:50)
PROC: 02HV33Z Insertion of Infusion Device into Superior Vena Cava, Percutaneous Approach (ICD-10-PCS; 2022-01-26)
PROC: B548ZZA Ultrasonography of Superior Vena Cava, Guidance (ICD-10-PCS; 2022-01-26)
DX: T81.49XA Infection following a procedure, other surgical site, initial encounter (principal); N17.0 Acute kidney failure with tubular necrosis; E44.0 Moderate protein-calorie malnutrition; M86.8X7 Other osteomyelitis, ankle and foot; Y83.5 Amputation of limb(s) as the cause of abnormal reaction of the patient, or of later complication, without mention of misadventure at the time of the procedure; E11.69 Type 2 diabetes mellitus with other specified complication; E11.22 Type 2 diabetes mellitus with diabetic chronic kidney disease; I12.9 Hypertensive chronic kidney disease with stage 1 through stage 4 chronic kidney disease, or unspecified chronic kidney disease; J44.9 Chronic obstructive pulmonary disease, unspecified; N18.9 Chronic kidney disease, unspecified; S91.301A Unspecified open wound, right foot, initial encounter; L08.9 Local infection of the skin and subcutaneous tissue, unspecified; Z20.822 Contact with and (suspected) exposure to COVID-19; E11.40 Type 2 diabetes mellitus with diabetic neuropathy, unspecified; Z68.26 Body mass index [BMI] 26.0-26.9, adult; X58.XXXA Exposure to other specified factors, initial encounter; Z89.421 Acquired absence of other right toe(s); Y93.89 Activity, other specified; Y92.89 Other specified places as the place of occurrence of the external cause; Y99.8 Other external cause status; Z79.84 Long term (current) use of oral hypoglycemic drugs
CPT/HCPCS: 36415; 36569; 71045; 73630; 80048; 80053; 80202; 81001; 82565; 82962; 83605; 84484; 85025; 85610; 85652; 86141; 87040; 87070; 87075; 87205; 93005; 96365; C9113; G0378; J0690; J0696; J1100; J1815; J2250; J2405; J2704; J7060

== ENCOUNTER 2022-04-16 21:27 | Inpatient (IN) | payer MEDICARE ==
[~2022-04-16] VITALS: Ht 182.9 cm; Wt 91.5 kg
[~2022-04-16 21:27] MED LIST changes: +INSREG3 SC; +LEVO-28 PO; +ROC2INJ10 IV
[2022-04-16 22:50] LABS: Basophils # (auto) 0.2 10 ^3/uL (0-0.2); Basophils % (auto) 2.1 % (0.0-2.0); Eosinophils # (auto) 0.2 10 ^3/uL (0-0.8); Eosinophils % (auto) 1.7 % (0.0-7.0); Hematocrit 32.6 % (41.0-53.0); Hemoglobin 10.7 g/dL (13.5-17.5); Lymphocytes # (auto) 0.9 10 ^3/uL (0.4-5.4); Lymphocytes % (auto) 8.3 % (10.0-50.0); Mean Corpuscular Hemoglobin 27.2 pg (28.0-32.0); Mean Corpuscular Hgb Conc. 32.7 g/dL (32.0-36.0); Mean Corpuscular Volume 83.1 fL (80.0-100.0); Monocytes # (auto) 1.3 10 ^3/uL (0-1.3); Monocytes % (auto) 12.2 % (0.0-12.0); Neutrophils # (auto) 7.9 10 ^3/uL (1.6-8.6); Neutrophils % (auto) 75.7 % (37.0-80.0); Red Blood Cells 3.92 10^6/uL (4.5-5.90); Red Cell Distribution Width 14.9 % (11.8-14.3); White Blood Cell 10.4 10^3/uL (4.4-10.8)
[2022-04-16 23:04] LABS: Albumin 3.4 g/dL (3.4-5.0); BUN/Creatinine Ratio 23.6; Calcium 8.8 mg/dL (8.5-10.1); Potassium 5.5 mmol/L (3.5-5.1)
[2022-04-16 23:07] LABS: Bilirubin, Total 0.9 mg/dL (0.2-1.0); Total Protein 8.3 g/dL (6.4-8.2)
[2022-04-16 23:30] LABS: CRP High Sensitivity 14.3 mg/dL (< 0.3)
[2022-04-17] MEDS ORDERED: PIPERACILLIN-TAZOB 3.375GM 100 ML IV ONE (00:45)
[2022-04-17] MEDS ORDERED: VANCOMYCIN 1GM/250ML 250 ML IV ONE (00:45)
[2022-04-17] MEDS ORDERED: IOHEXOL 350 MG/ML 100ML IJ ONE (01:15)
[2022-04-17] MEDS ORDERED: HYDROcodone-ACET 5/325MG TAB PO ONE (05:00)
[2022-04-17] MEDS ORDERED: TEMAZEPAM 15 MG CAP PO PRN (06:30)
[2022-04-17] MEDS ORDERED: ACETAMINOPHEN 325 MG TAB PO PRN (06:30)
[2022-04-17] MEDS ORDERED: ONDANSETRON HCL 4 MG/2 ML VIAL IV PRN (06:30)
[2022-04-17] MEDS ORDERED: DEXTROSE (50%) 50ML SYRG IV PRN (06:30)
[2022-04-17] MEDS: cefTRIAXone 1GM/50ML D5W 50 ML IV SCH (08:00)
[2022-04-17] MEDS: CLINDAMYCIN 600MG IV 50 ML IV SCH ×3 (09:45→21:54)
[2022-04-17] MEDS ORDERED: LISINOPRIL 5 MG TAB PO SCH (10:00)
[2022-04-17] MEDS: ACCU-CHEK COMFORT CURVE STRIP VI SCH ×2 (12:00→20:54)
[2022-04-17] MEDS: InsuLIN REG 1unit/0.01ml Soln (100units/ml) SC SCH ×3 (13:06→23:21)
[2022-04-17] MEDS ORDERED: SODIUM CHLORIDE 0.9% 1,000 ML IV ONE (14:15)
[2022-04-17] MEDS ORDERED: ERGOCALCIFEROL 50,000 UNIT(1.25MG) CAP PO SCH (14:30)
[2022-04-17 17:47] VITALS: BP 92/68
[2022-04-17 22:00] VITALS: BP 111/59
[2022-04-18] MEDS: ACCU-CHEK COMFORT CURVE STRIP VI SCH ×4 (02:24→17:32)
[2022-04-18 05:00] VITALS: BP 110/70
[2022-04-18 05:06] LABS: Basophils # (auto) 0.1 10 ^3/uL (0-0.2); Eosinophils # (auto) 0.2 10 ^3/uL (0-0.8); Lymphocytes # (auto) 1.1 10 ^3/uL (0.4-5.4)
[2022-04-18 05:08] LABS: Basophils % (auto) 0.7 % (0.0-2.0); Eosinophils % (auto) 2.1 % (0.0-7.0); Hematocrit 29.1 % (41.0-53.0); Hemoglobin 9.7 g/dL (13.5-17.5); Mean Corpuscular Hemoglobin 27.7 pg (28.0-32.0); Mean Corpuscular Hgb Conc. 33.4 g/dL (32.0-36.0); Mean Corpuscular Volume 82.9 fL (80.0-100.0); Monocytes # (auto) 1.3 10 ^3/uL (0-1.3); Monocytes % (auto) 13.6 % (0.0-12.0); Neutrophils # (auto) 7.1 10 ^3/uL (1.6-8.6); Neutrophils % (auto) 72.6 % (37.0-80.0); Red Blood Cells 3.51 10^6/uL (4.5-5.90); White Blood Cell 9.7 10^3/uL (4.4-10.8)
[2022-04-18] MEDS: InsuLIN REG 1unit/0.01ml Soln (100units/ml) SC SCH ×3 (05:12→17:57)
[2022-04-18] MEDS: CLINDAMYCIN 600MG IV 50 ML IV SCH ×3 (05:21→22:23)
[2022-04-18 05:26] LABS: BUN/Creatinine Ratio 21.5; Calcium 8.6 mg/dL (8.5-10.1)
[2022-04-18 09:00] VITALS: BP 112/68
[2022-04-18] MEDS: cefTRIAXone 1GM/50ML D5W 50 ML IV SCH (09:07)
[2022-04-18] MEDS ORDERED: LISI-275 PO (11:17)
[2022-04-18] MEDS ORDERED: ERGO1CAP23 PO (11:17)
[2022-04-18 13:00] VITALS: BP 115/70
[2022-04-18] MEDS: HYDROcodone-ACET 5/325MG TAB PO PRN ×2 (17:10→22:23)
[2022-04-18 19:30] LABS: Urine Bacteria FEW /hpf (None Seen); Urine Blood 3+ /uL (Negative); Urine Specific Gravity 1.017 (1.001-1.035); Urine WBC 1 /hpf (0 - 3)
[2022-04-18 19:40] LABS: Amphetamine Screen, Urine POSITIVE (NEGATIVE); Barbiturate Scree,Urine NEGATIVE (NEGATIVE); Benzodiazephine Screen, Urine NEGATIVE (NEGATIVE); Cocaine Screen, Urine NEGATIVE (NEGATIVE); Phencyclidine Screen, Urine NEGATIVE (NEGATIVE)
[2022-04-18 19:47] LABS: Cannabinoid Screen, Urine POSITIVE (NEGATIVE); Opiate Scree,Urine NEGATIVE (NEGATIVE)
[2022-04-18 21:46] VITALS: BP 106/66
[2022-04-19] MEDS: InsuLIN REG 1unit/0.01ml Soln (100units/ml) SC SCH ×4 (00:58→17:41)
[2022-04-19] MEDS: ACCU-CHEK COMFORT CURVE STRIP VI SCH ×4 (01:00→17:39)
[2022-04-19] MEDS: CLINDAMYCIN 600MG IV 50 ML IV SCH ×3 (05:42→21:37)
[2022-04-19 09:00] VITALS: BP 113/75
[2022-04-19] MEDS: cefTRIAXone 1GM/50ML D5W 50 ML IV SCH (10:05)
[2022-04-19 13:00] VITALS: BP 110/72
[2022-04-19 16:27] VITALS: BP 125/80
[2022-04-19] MEDS: INSULIN LANTUS (GLARGINE) 1 /0.01ml (100units/ml) SC SCH (21:39)
[2022-04-19 22:00] VITALS: BP 105/46
[2022-04-20] MEDS: InsuLIN REG 1unit/0.01ml Soln (100units/ml) SC SCH ×4 (00:30→17:57)
[2022-04-20] MEDS: ACCU-CHEK COMFORT CURVE STRIP VI SCH ×4 (00:33→17:51)
[2022-04-20 05:00] VITALS: BP 111/68
[2022-04-20] MEDS: CLINDAMYCIN 600MG IV 50 ML IV SCH ×2 (06:24→14:21)
[2022-04-20] MEDS: cefTRIAXone 1GM/50ML D5W 50 ML IV SCH (08:01)
[2022-04-20 09:00] VITALS: BP 124/75
[2022-04-20 13:00] VITALS: BP 115/72
[2022-04-20 17:00] VITALS: BP 105/63
[2022-04-20] MEDS: AMPICILLIN & SULBACTAM SODIUM 3 GM in SODIUM CHL 0.9% 100 ML IV SCH (17:33)
[2022-04-20 22:00] VITALS: BP 118/70
[2022-04-20] MEDS: INSULIN LANTUS (GLARGINE) 1 /0.01ml (100units/ml) SC SCH (22:27)
[2022-04-21] MEDS: ACCU-CHEK COMFORT CURVE STRIP VI SCH ×4 (00:14→18:00)
[2022-04-21] MEDS: AMPICILLIN & SULBACTAM SODIUM 3 GM in SODIUM CHL 0.9% 100 ML IV SCH ×4 (00:14→18:24)
[2022-04-21] MEDS: InsuLIN REG 1unit/0.01ml Soln (100units/ml) SC SCH ×4 (00:16→18:01)
[2022-04-21 05:00] VITALS: BP 107/59
[2022-04-21 07:30] VITALS: BP 90/66
[2022-04-21 08:08] LABS: INR 1.06 (0.9-1.15); Partial Thromboplastin Time 30.6 sec (24.6-33.4)
[2022-04-21 08:45] VITALS: BP 130/71
[2022-04-21] MEDS ORDERED: PROPOFOL 10 MG/ML 20 ML IV ONE (11:28)
[2022-04-21] MEDS ORDERED: ONDANSETRON HCL 4 MG/2 ML VIAL ONE (12:25)
[2022-04-21] MEDS ORDERED: fentaNYL CITRATE 100 MCG/2 ML VL ONE (12:25)
[2022-04-21] MEDS ORDERED: SODIUM CHLORIDE LOCK 10 ML ONE (12:25)
[2022-04-21] MEDS ORDERED: MIDAZOLAM HCL 2MG/2ML 2ml VIAL (1mg/ml) ONE (12:25)
[2022-04-21] MEDS ORDERED: ceFAZolin 1GM/50ML 100 ML IV ONE (12:44)
[2022-04-21] MEDS ORDERED: ACCU-CHEK COMFORT CURVE STRIP VI ONE (12:45)
[2022-04-21] MEDS ORDERED: HYDROmorphone HCL 2 MG/ML VL/or syr IV PRN (12:45)
[2022-04-21] MEDS ORDERED: METOCLOPRAMIDE HCL 5MG/ml INJ 2ml VIAL IV PRN (12:45)
[2022-04-21] MEDS ORDERED: MORPHINE SULFATE 4 MG/ML SYR/VIAL IV PRN (12:45)
[2022-04-21] MEDS ORDERED: BUPIVACAINE 0.5% P/F INJ 10 ML VIAL ONE (13:00)
[2022-04-21] MEDS ORDERED: LIDOCAINE 2%HCL (LOCAL ANESTH.) INJ 10ml MDV ONE (13:00)
[2022-04-21 17:13] VITALS: BP 120/68
[2022-04-21 22:00] VITALS: BP 108/64
[2022-04-21] MEDS: INSULIN LANTUS (GLARGINE) 1 /0.01ml (100units/ml) SC SCH (22:38)
[2022-04-22] MEDS: AMPICILLIN & SULBACTAM SODIUM 3 GM in SODIUM CHL 0.9% 100 ML IV SCH ×4 (00:06→17:59)
[2022-04-22] MEDS: InsuLIN REG 1unit/0.01ml Soln (100units/ml) SC SCH ×4 (00:21→17:40)
[2022-04-22] MEDS: ACCU-CHEK COMFORT CURVE STRIP VI SCH ×4 (00:22→17:40)
[2022-04-22 05:00] VITALS: BP 114/77
[2022-04-22 09:00] VITALS: BP 120/78
[2022-04-22 13:00] VITALS: BP 120/73
[2022-04-22 17:21] VITALS: BP 113/70
[2022-04-22 22:00] VITALS: BP 131/75
[2022-04-22] MEDS: INSULIN LANTUS (GLARGINE) 1 /0.01ml (100units/ml) SC SCH (22:18)
[2022-04-23] MEDS: AMPICILLIN & SULBACTAM SODIUM 3 GM in SODIUM CHL 0.9% 100 ML IV SCH ×4 (00:31→17:35)
[2022-04-23] MEDS: ACCU-CHEK COMFORT CURVE STRIP VI SCH ×4 (00:37→17:41)
[2022-04-23] MEDS: InsuLIN REG 1unit/0.01ml Soln (100units/ml) SC SCH ×4 (00:42→17:41)
[2022-04-23 05:00] VITALS: BP 119/76
[2022-04-23 09:01] VITALS: BP 123/74
[2022-04-23] MEDS: DAKINS HALF STR 0.25% (NaHypochlorite) 473 ML TOPICAL SOL TOP SCH (14:36)
[2022-04-23 16:50] VITALS: BP 109/65
[2022-04-23] MEDS: INSULIN LANTUS (GLARGINE) 1 /0.01ml (100units/ml) SC SCH (21:59)
[2022-04-23 22:00] VITALS: BP 127/64
[2022-04-24] MEDS: AMPICILLIN & SULBACTAM SODIUM 3 GM in SODIUM CHL 0.9% 100 ML IV SCH ×3 (00:11→12:00)
[2022-04-24] MEDS: ACCU-CHEK COMFORT CURVE STRIP VI SCH ×3 (00:11→12:00)
[2022-04-24] MEDS: InsuLIN REG 1unit/0.01ml Soln (100units/ml) SC SCH ×3 (00:21→12:00)
[2022-04-24 04:55] LABS: Basophils # (auto) 0.1 10 ^3/uL (0-0.2); Basophils % (auto) 0.9 % (0.0-2.0); Eosinophils # (auto) 0.6 10 ^3/uL (0-0.8); Eosinophils % (auto) 5.9 % (0.0-7.0); Hematocrit 30.6 % (41.0-53.0); Hemoglobin 10.2 g/dL (13.5-17.5); Lymphocytes # (auto) 1.8 10 ^3/uL (0.4-5.4); Lymphocytes % (auto) 18.2 % (10.0-50.0); Mean Corpuscular Hemoglobin 27.4 pg (28.0-32.0); Mean Corpuscular Hgb Conc. 33.4 g/dL (32.0-36.0); Mean Corpuscular Volume 82.2 fL (80.0-100.0); Monocytes # (auto) 1.1 10 ^3/uL (0-1.3); Monocytes % (auto) 11.3 % (0.0-12.0); Neutrophils # (auto) 6.2 10 ^3/uL (1.6-8.6); Neutrophils % (auto) 63.7 % (37.0-80.0); Red Blood Cells 3.72 10^6/uL (4.5-5.90); Red Cell Distribution Width 14.5 % (11.8-14.3); White Blood Cell 9.8 10^3/uL (4.4-10.8)
[2022-04-24 05:00] VITALS: BP 130/75
[2022-04-24 05:08] LABS: Potassium 4.2 mmol/L (3.5-5.1)
[2022-04-24 05:19] LABS: Albumin 2.7 g/dL (3.4-5.0); BUN/Creatinine Ratio 15.7; Bilirubin, Total 0.6 mg/dL (0.2-1.0); CRP High Sensitivity 1.86 mg/dL (< 0.3); Calcium 8.8 mg/dL (8.5-10.1); Total Protein 7.1 g/dL (6.4-8.2)
[2022-04-24 08:49] VITALS: BP 125/75
[2022-04-24] MEDS: DAKINS HALF STR 0.25% (NaHypochlorite) 473 ML TOPICAL SOL TOP SCH (10:00)
[2022-04-24] MEDS ORDERED: AMOXTAB PO (10:38)
[2022-04-24 11:39] VITALS: BP 125/75
[2022-04-24 13:07] VITALS: BP 118/76
== END 2022-04-24 12:45 | disposition home health service (06) | DRG 699 ==
LOC: ER 21:27 → OVERFLOW 04-17 06:23 → CENTRAL 04-17 16:56
PROVIDERS: ADMIT Nurse Practitioner; ATTEND Internal Medicine
PROC: 0Y9M0ZZ Drainage of Right Foot, Open Approach (ICD-10-PCS; principal; 2022-04-21 12:56)
DX: E11.22 Type 2 diabetes mellitus with diabetic chronic kidney disease (principal); L02.611 Cutaneous abscess of right foot; L03.115 Cellulitis of right lower limb; R47.01 Aphasia; M86.8X6 Other osteomyelitis, lower leg; N17.9 Acute kidney failure, unspecified; I49.3 Ventricular premature depolarization; J44.9 Chronic obstructive pulmonary disease, unspecified; R00.0 Tachycardia, unspecified; E11.65 Type 2 diabetes mellitus with hyperglycemia; E55.9 Vitamin D deficiency, unspecified; E11.69 Type 2 diabetes mellitus with other specified complication; F15.10 Other stimulant abuse, uncomplicated; N18.31 Chronic kidney disease, stage 3a; Z20.822 Contact with and (suspected) exposure to COVID-19; I12.9 Hypertensive chronic kidney disease with stage 1 through stage 4 chronic kidney disease, or unspecified chronic kidney disease; Z91.19 Patient's noncompliance with other medical treatment and regimen; Z89.411 Acquired absence of right great toe; Z79.4 Long term (current) use of insulin; Z79.899 Other long term (current) drug therapy
CPT/HCPCS: 36415; 71045; 73630; 73701; 80048; 80053; 80307; 81001; 82306; 82962; 83605; 85025; 85610; 85652; 85730; 86141; 87040; 87070; 87075; 87077; 87186; 87205; 93005; 93971; 96361; 96365; 96366; 96367; G0378; J0690; J0696; J1815; J2001; J2250; J2405; J2543; J2704; J3490

== ENCOUNTER 2022-07-02 13:59 | Emergency (ER) | payer MEDICARE ==
[~2022-07-02] VITALS: Ht 182.9 cm; Wt 93.0 kg
[~2022-07-02 13:59] MED LIST changes: +AMOXTAB PO; +ERGO1CAP23 PO; -INSREG3 SC; -LEVO-28 PO; +LISI-275 PO; -METF-371 PO; -ROC2INJ10 IV
[2022-07-02 14:44] VITALS: BP 118/70
== END 2022-07-02 18:21 | disposition left against medical advice (07) ==
LOC: ER 13:59
DX: Z48.00 Encounter for change or removal of nonsurgical wound dressing (principal); Z53.21 Procedure and treatment not carried out due to patient leaving prior to being seen by health care provider

== ENCOUNTER 2022-07-03 07:08 | Inpatient (IN) | payer MEDICARE ==
[~2022-07-03] VITALS: Ht 172.7 cm; Wt 96.0 kg
[2022-07-03] MEDS ORDERED: MORPHINE SULFATE 4 MG/ML SYR/VIAL IV ONE (08:15)
[2022-07-03] MEDS ORDERED: SODIUM CHLORIDE 0.9% 500 ML IV ONE (08:15)
[2022-07-03] MEDS ORDERED: CLINDAMYCIN 600MG IV 50 ML IV ONE (08:15)
[2022-07-03] MEDS ORDERED: ONDANSETRON HCL 4 MG/2 ML VIAL IV ONE (08:15)
[2022-07-03 09:29] LABS: Basophils # (auto) 0.2 10 ^3/uL (0-0.2); Basophils % (auto) 1.3 % (0.0-2.0); Eosinophils # (auto) 0.3 10 ^3/uL (0-0.8); Eosinophils % (auto) 1.7 % (0.0-7.0); Hematocrit 27.6 % (41.0-53.0); Hemoglobin 9.1 g/dL (13.5-17.5); Lymphocytes # (auto) 1.1 10 ^3/uL (0.4-5.4); Lymphocytes % (auto) 6.6 % (10.0-50.0); Mean Corpuscular Hemoglobin 27.3 pg (28.0-32.0); Mean Corpuscular Hgb Conc. 32.9 g/dL (32.0-36.0); Monocytes # (auto) 1.6 10 ^3/uL (0-1.3); Monocytes % (auto) 9.2 % (0.0-12.0); Neutrophils # (auto) 13.8 10 ^3/uL (1.6-8.6); Neutrophils % (auto) 81.2 % (37.0-80.0); Red Blood Cells 3.33 10^6/uL (4.5-5.90)
[2022-07-03 09:43] LABS: INR 1.08 (0.9-1.15); Partial Thromboplastin Time 33.9 sec (24.6-33.4)
[2022-07-03 10:10] LABS: Calcium 8.9 mg/dL (8.5-10.1); Potassium 4.9 mmol/L (3.5-5.1)
[2022-07-03 10:13] LABS: BUN/Creatinine Ratio 22.6; Bilirubin, Total 1.2 mg/dL (0.2-1.0); Total Protein 8.2 g/dL (6.4-8.2)
[2022-07-03] MEDS ORDERED: HYDROcodone-ACET 5/325MG TAB PO PRN (12:00)
[2022-07-03] MEDS ORDERED: NITROGLYCERIN 0.4 MG SL TAB SL PRN (12:00)
[2022-07-03] MEDS ORDERED: MORPHINE SULFATE INJ 2 MG/ml SYRG IV PRN ×2 (12:00)
[2022-07-03] MEDS ORDERED: ACETAMINOPHEN 325 MG TAB PO PRN (12:00)
[2022-07-03] MEDS ORDERED: ONDANSETRON HCL 4 MG/2 ML VIAL IV PRN (12:00)
[2022-07-03] MEDS ORDERED: DEXTROSE (50%) 50ML SYRG IV PRN (13:15)
[2022-07-03] MEDS: AMPICILLIN & SULBACTAM SODIUM 3 GM in SODIUM CHL 0.9% 100 ML IV SCH ×3 (13:22→23:27)
[2022-07-03] MEDS: SODIUM CHLORIDE 0.9% 1,000 ML IV SCH ×2 (13:29→23:26)
[2022-07-03] MEDS ORDERED: hydrALAZINE HCL 20 MG/ML VL IV PRN (13:30)
[2022-07-03] MEDS: InsuLIN REG 1unit/0.01ml Soln (100units/ml) SC SCH ×2 (16:51→22:00)
[2022-07-03] MEDS: ACCU-CHEK COMFORT CURVE STRIP VI SCH ×2 (16:53→22:00)
[2022-07-03] MEDS: HEPARIN SODIUM (PORCINE) 5000 UNITS/ML 1ML VIAL SC SCH (22:00)
[2022-07-03 22:26] VITALS: BP 106/61
[2022-07-04 05:00] VITALS: BP_SYST 108; BP_SYST 112; BP_DIAS 54; BP_DIAS 58
[2022-07-04 05:27] LABS: Basophils # (auto) 0.1 10 ^3/uL (0-0.2); Basophils % (auto) 0.6 % (0.0-2.0); Lymphocytes # (auto) 1.1 10 ^3/uL (0.4-5.4)
[2022-07-04 05:32] LABS: Eosinophils # (auto) 0.2 10 ^3/uL (0-0.8); Eosinophils % (auto) 1.9 % (0.0-7.0); Hematocrit 24.1 % (41.0-53.0); Lymphocytes % (auto) 9.8 % (10.0-50.0); Mean Corpuscular Hemoglobin 27.7 pg (28.0-32.0); Mean Corpuscular Hgb Conc. 33.4 g/dL (32.0-36.0); Mean Corpuscular Volume 83.1 fL (80.0-100.0); Monocytes # (auto) 1.2 10 ^3/uL (0-1.3); Monocytes % (auto) 10.7 % (0.0-12.0); Neutrophils # (auto) 8.7 10 ^3/uL (1.6-8.6); Red Cell Distribution Width 14.9 % (11.8-14.3); White Blood Cell 11.3 10^3/uL (4.4-10.8)
[2022-07-04] MEDS: AMPICILLIN & SULBACTAM SODIUM 3 GM in SODIUM CHL 0.9% 100 ML IV SCH (05:36)
[2022-07-04 05:41] LABS: Potassium 5.1 mmol/L (3.5-5.1)
[2022-07-04 05:47] LABS: Albumin 2.5 g/dL (3.4-5.0); BUN/Creatinine Ratio 17.7; Calcium 8.3 mg/dL (8.5-10.1)
[2022-07-04 05:49] LABS: Bilirubin, Total 1.3 mg/dL (0.2-1.0); Total Protein 6.9 g/dL (6.4-8.2)
[2022-07-04] MEDS: InsuLIN REG 1unit/0.01ml Soln (100units/ml) SC SCH ×4 (06:20→21:49)
[2022-07-04] MEDS: ACCU-CHEK COMFORT CURVE STRIP VI SCH ×4 (06:20→21:39)
[2022-07-04 09:00] VITALS: BP 122/74
[2022-07-04] MEDS: HEPARIN SODIUM (PORCINE) 5000 UNITS/ML 1ML VIAL SC SCH ×2 (09:38→21:49)
[2022-07-04] MEDS ORDERED: VANCOMYCIN PER PHARMACY 0 MG IV SCH (11:30)
[2022-07-04] MEDS ORDERED: VANCOMYCIN 1GM/250ML 250 ML IV ONE (12:15)
[2022-07-04 13:00] VITALS: BP 113/59
[2022-07-04] MEDS: CEFEPIME 1GM/ 50ML 50 ML IV SCH ×2 (14:43→21:39)
[2022-07-04 17:00] VITALS: BP 114/76
[2022-07-04 17:11] LABS: Urine Bacteria NONE SEEN /hpf (None Seen); Urine Blood 3+ /uL (Negative); Urine Specific Gravity 1.018 (1.001-1.035); Urine WBC 1 /hpf (0 - 3)
[2022-07-04 17:30] LABS: Alcohol, Urine < 3.0 mg/dL (0-10); Amphetamine Screen, Urine POSITIVE (NEGATIVE); Barbiturate Scree,Urine NEGATIVE (NEGATIVE); Benzodiazephine Screen, Urine NEGATIVE (NEGATIVE); Cannabinoid Screen, Urine NEGATIVE (NEGATIVE); Cocaine Screen, Urine NEGATIVE (NEGATIVE); Opiate Scree,Urine NEGATIVE (NEGATIVE); Phencyclidine Screen, Urine NEGATIVE (NEGATIVE)
[2022-07-04] MEDS ORDERED: LIDOCAINE 1% (LOCAL ANESTH.) PF 5ml SDV ID ONE (18:30)
[2022-07-04] MEDS: SODIUM CHLOR 0.9% PF (SALINE LOCK) 10ML VIAL/SYR IV SCH (21:39)
[2022-07-04 22:00] VITALS: BP 125/59
[2022-07-04] MEDS: MUPIROCIN 2% OINT 15gm or 22gm FOR MRSA NARES EACHNOSTRI SCH (22:02)
[2022-07-05 05:00] VITALS: BP 135/67
[2022-07-05] MEDS ORDERED: VANCOMYCIN 1GM/250ML 250 ML IV SCH (06:00)
[2022-07-05 06:04] LABS: Basophils # (auto) 0.1 10 ^3/uL (0-0.2); Basophils % (auto) 0.9 % (0.0-2.0); Eosinophils # (auto) 0.2 10 ^3/uL (0-0.8); Eosinophils % (auto) 1.9 % (0.0-7.0); Hematocrit 26.3 % (41.0-53.0); Hemoglobin 8.7 g/dL (13.5-17.5); Lymphocytes # (auto) 1.1 10 ^3/uL (0.4-5.4); Mean Corpuscular Hemoglobin 27.7 pg (28.0-32.0); Mean Corpuscular Hgb Conc. 33.2 g/dL (32.0-36.0); Mean Corpuscular Volume 83.4 fL (80.0-100.0); Monocytes # (auto) 1.3 10 ^3/uL (0-1.3); Monocytes % (auto) 11.3 % (0.0-12.0); Neutrophils # (auto) 8.6 10 ^3/uL (1.6-8.6); Neutrophils % (auto) 75.9 % (37.0-80.0); Red Blood Cells 3.15 10^6/uL (4.5-5.90); Red Cell Distribution Width 14.9 % (11.8-14.3); White Blood Cell 11.3 10^3/uL (4.4-10.8)
[2022-07-05 06:17] LABS: INR 1.13 (0.9-1.15); Partial Thromboplastin Time 33.6 sec (24.6-33.4)
[2022-07-05 06:18] LABS: Calcium 8.3 mg/dL (8.5-10.1); Magnesium 2.2 mg/dL (1.6-2.6); Potassium 4.9 mmol/L (3.5-5.1)
[2022-07-05 06:27] LABS: BUN/Creatinine Ratio 18.5; CRP High Sensitivity 14.1 mg/dL (< 0.3)
[2022-07-05] MEDS: CEFEPIME 1GM/ 50ML 50 ML IV SCH ×3 (06:35→22:30)
[2022-07-05] MEDS: ACCU-CHEK COMFORT CURVE STRIP VI SCH ×4 (08:05→22:37)
[2022-07-05] MEDS: InsuLIN REG 1unit/0.01ml Soln (100units/ml) SC SCH ×4 (08:07→22:54)
[2022-07-05] MEDS ORDERED: NEOMYCIN-BACITRACIN-POLYM 15GM TOP OINT TOP ONE (08:43)
[2022-07-05] MEDS ORDERED: ceFAZolin 1GM VL ONE (08:43)
[2022-07-05] MEDS ORDERED: ROPIVACAINE 0.5% (5MG/ML) 20ML AMPULE IJ ONE (08:43)
[2022-07-05 09:00] VITALS: BP 134/71
[2022-07-05] MEDS ORDERED: ceFAZolin 1GM/50ML 100 ML IV ONE (09:02)
[2022-07-05] MEDS ORDERED: HYDROmorphone HCL 2 MG/ML VL/or syr IV PRN (09:15)
[2022-07-05] MEDS ORDERED: ONDANSETRON HCL 4 MG/2 ML VIAL IV PRN (09:15)
[2022-07-05] MEDS ORDERED: MIDAZOLAM HCL 2MG/2ML 2ml VIAL (1mg/ml) ONE (09:18)
[2022-07-05] MEDS ORDERED: fentaNYL CITRATE 100 MCG/2 ML VL ONE (09:18)
[2022-07-05] MEDS ORDERED: PROPOFOL 10 MG/ML 20 ML IV ONE (10:14)
[2022-07-05] MEDS ORDERED: ONDANSETRON HCL 4 MG/2 ML VIAL ONE (10:14)
[2022-07-05] MEDS ORDERED: LIDOCAINE 2% (LOCAL ANESTH.) PF 5ml SDV ONE (10:15)
[2022-07-05] MEDS: HEPARIN SODIUM (PORCINE) 5000 UNITS/ML 1ML VIAL SC SCH ×2 (11:32→23:09)
[2022-07-05] MEDS: MUPIROCIN 2% OINT 15gm or 22gm FOR MRSA NARES EACHNOSTRI SCH ×2 (11:32→22:52)
[2022-07-05] MEDS: VANCOMYCIN 1GM/250ML 250 ML IV SCH (11:32)
[2022-07-05] MEDS: SODIUM CHLOR 0.9% PF (SALINE LOCK) 10ML VIAL/SYR IV SCH ×2 (11:32→22:37)
[2022-07-05 13:00] VITALS: BP 114/73
[2022-07-05 17:00] VITALS: BP 110/64
[2022-07-05 22:00] VITALS: BP 118/62
[2022-07-06] MEDS: VANCOMYCIN 1GM/250ML 250 ML IV SCH ×2 (04:00→22:49)
[2022-07-06 05:19] VITALS: BP 126/76
[2022-07-06] MEDS: CEFEPIME 1GM/ 50ML 50 ML IV SCH ×3 (06:26→22:09)
[2022-07-06] MEDS: ACCU-CHEK COMFORT CURVE STRIP VI SCH ×4 (07:04→22:09)
[2022-07-06] MEDS: InsuLIN REG 1unit/0.01ml Soln (100units/ml) SC SCH ×4 (07:07→22:47)
[2022-07-06 09:00] VITALS: BP 127/61
[2022-07-06] MEDS: SODIUM CHLOR 0.9% PF (SALINE LOCK) 10ML VIAL/SYR IV SCH ×2 (10:00→22:09)
[2022-07-06] MEDS: MUPIROCIN 2% OINT 15gm or 22gm FOR MRSA NARES EACHNOSTRI SCH ×2 (10:00→22:49)
[2022-07-06] MEDS: HEPARIN SODIUM (PORCINE) 5000 UNITS/ML 1ML VIAL SC SCH ×2 (11:25→22:47)
[2022-07-06 13:00] VITALS: BP 118/70
[2022-07-06 17:00] VITALS: BP 126/63
[2022-07-06 22:00] VITALS: BP 102/46
[2022-07-07 05:00] VITALS: BP 122/72
[2022-07-07 05:08] LABS: Basophils # (auto) 0.1 10 ^3/uL (0-0.2); Basophils % (auto) 0.8 % (0.0-2.0); Eosinophils # (auto) 0.5 10 ^3/uL (0-0.8); Eosinophils % (auto) 4.2 % (0.0-7.0); Hematocrit 26.2 % (41.0-53.0); Hemoglobin 8.7 g/dL (13.5-17.5); Lymphocytes # (auto) 1.1 10 ^3/uL (0.4-5.4); Lymphocytes % (auto) 9.1 % (10.0-50.0); Mean Corpuscular Hemoglobin 27.3 pg (28.0-32.0); Mean Corpuscular Hgb Conc. 33.2 g/dL (32.0-36.0); Mean Corpuscular Volume 82.2 fL (80.0-100.0); Monocytes # (auto) 1.7 10 ^3/uL (0-1.3); Monocytes % (auto) 13.4 % (0.0-12.0); Neutrophils % (auto) 72.5 % (37.0-80.0); Red Blood Cells 3.19 10^6/uL (4.5-5.90); Red Cell Distribution Width 15.1 % (11.8-14.3); White Blood Cell 12.4 10^3/uL (4.4-10.8)
[2022-07-07 05:27] LABS: Potassium 4.6 mmol/L (3.5-5.1)
[2022-07-07 05:30] LABS: BUN/Creatinine Ratio 17.5
[2022-07-07] MEDS: CEFEPIME 1GM/ 50ML 50 ML IV SCH ×3 (06:45→22:54)
[2022-07-07] MEDS: ACCU-CHEK COMFORT CURVE STRIP VI SCH ×4 (06:45→22:54)
[2022-07-07] MEDS: InsuLIN REG 1unit/0.01ml Soln (100units/ml) SC SCH ×4 (06:57→23:03)
[2022-07-07 08:49] VITALS: BP_SYST 127; BP_SYST 158; BP_DIAS 80; BP_DIAS 86
[2022-07-07] MEDS: MUPIROCIN 2% OINT 15gm or 22gm FOR MRSA NARES EACHNOSTRI SCH ×2 (10:00→22:54)
[2022-07-07] MEDS: SODIUM CHLOR 0.9% PF (SALINE LOCK) 10ML VIAL/SYR IV SCH ×2 (10:00→22:54)
[2022-07-07] MEDS: HEPARIN SODIUM (PORCINE) 5000 UNITS/ML 1ML VIAL SC SCH ×2 (10:00→23:18)
[2022-07-07 13:06] VITALS: BP 111/64
[2022-07-07] MEDS: VANCOMYCIN 1GM/250ML 250 ML IV SCH ×2 (16:01→17:45)
[2022-07-07 16:47] VITALS: BP 104/58
[2022-07-07 21:51] VITALS: BP 114/68
[2022-07-08 05:17] VITALS: BP 129/72
[2022-07-08] MEDS: VANCOMYCIN 1GM/250ML 250 ML IV SCH ×2 (05:35→17:44)
[2022-07-08 06:24] LABS: Basophils # (auto) 0.1 10 ^3/uL (0-0.2); Basophils % (auto) 0.9 % (0.0-2.0); Eosinophils # (auto) 0.5 10 ^3/uL (0-0.8); Eosinophils % (auto) 4.1 % (0.0-7.0); Hematocrit 25.7 % (41.0-53.0); Hemoglobin 8.6 g/dL (13.5-17.5); Lymphocytes # (auto) 1.4 10 ^3/uL (0.4-5.4); Lymphocytes % (auto) 12.4 % (10.0-50.0); Mean Corpuscular Hemoglobin 27.6 pg (28.0-32.0); Mean Corpuscular Hgb Conc. 33.6 g/dL (32.0-36.0); Monocytes # (auto) 1.2 10 ^3/uL (0-1.3); Monocytes % (auto) 10.6 % (0.0-12.0); Neutrophils # (auto) 8.1 10 ^3/uL (1.6-8.6); Red Blood Cells 3.13 10^6/uL (4.5-5.90); Red Cell Distribution Width 14.5 % (11.8-14.3); White Blood Cell 11.3 10^3/uL (4.4-10.8)
[2022-07-08 06:38] LABS: Albumin 2.2 g/dL (3.4-5.0); Calcium 8.3 mg/dL (8.5-10.1); Potassium 4.9 mmol/L (3.5-5.1)
[2022-07-08 06:40] LABS: BUN/Creatinine Ratio 15.2
[2022-07-08 06:43] LABS: Bilirubin, Total 0.5 mg/dL (0.2-1.0); Total Protein 6.3 g/dL (6.4-8.2)
[2022-07-08] MEDS: ACCU-CHEK COMFORT CURVE STRIP VI SCH ×4 (07:06→22:29)
[2022-07-08] MEDS: CEFEPIME 1GM/ 50ML 50 ML IV SCH ×3 (07:06→23:35)
[2022-07-08] MEDS: InsuLIN REG 1unit/0.01ml Soln (100units/ml) SC SCH ×4 (07:07→23:47)
[2022-07-08 08:39] VITALS: BP 122/72
[2022-07-08] MEDS: SODIUM CHLOR 0.9% PF (SALINE LOCK) 10ML VIAL/SYR IV SCH ×2 (10:00→23:36)
[2022-07-08] MEDS: HEPARIN SODIUM (PORCINE) 5000 UNITS/ML 1ML VIAL SC SCH ×2 (10:00→23:43)
[2022-07-08] MEDS: MUPIROCIN 2% OINT 15gm or 22gm FOR MRSA NARES EACHNOSTRI SCH ×2 (10:00→23:35)
[2022-07-08 13:00] VITALS: BP 125/75
[2022-07-08 17:14] VITALS: BP 120/72
[2022-07-08 22:00] VITALS: BP 114/69
[2022-07-09 05:00] VITALS: BP 115/73
[2022-07-09] MEDS: VANCOMYCIN 1GM/250ML 250 ML IV SCH ×2 (05:42→18:24)
[2022-07-09] MEDS: CEFEPIME 1GM/ 50ML 50 ML IV SCH ×3 (06:52→22:22)
[2022-07-09] MEDS: ACCU-CHEK COMFORT CURVE STRIP VI SCH ×4 (07:06→22:18)
[2022-07-09] MEDS: InsuLIN REG 1unit/0.01ml Soln (100units/ml) SC SCH ×4 (07:08→22:19)
[2022-07-09 09:41] VITALS: BP 106/67
[2022-07-09] MEDS: MUPIROCIN 2% OINT 15gm or 22gm FOR MRSA NARES EACHNOSTRI SCH (10:00)
[2022-07-09] MEDS: HEPARIN SODIUM (PORCINE) 5000 UNITS/ML 1ML VIAL SC SCH ×2 (10:00→22:19)
[2022-07-09] MEDS: SODIUM CHLOR 0.9% PF (SALINE LOCK) 10ML VIAL/SYR IV SCH ×2 (10:00→22:18)
[2022-07-09 13:30] VITALS: BP 114/67
[2022-07-09 16:45] VITALS: BP 107/61
[2022-07-09 17:00] VITALS: BP 114/69
[2022-07-09 22:00] VITALS: BP 108/60
[2022-07-10 05:00] VITALS: BP 127/70
[2022-07-10] MEDS: VANCOMYCIN 1GM/250ML 250 ML IV SCH ×2 (05:32→19:57)
[2022-07-10] MEDS: ACCU-CHEK COMFORT CURVE STRIP VI SCH ×4 (06:32→22:36)
[2022-07-10] MEDS: InsuLIN REG 1unit/0.01ml Soln (100units/ml) SC SCH ×4 (06:34→22:35)
[2022-07-10] MEDS: CEFEPIME 1GM/ 50ML 50 ML IV SCH ×2 (06:56→16:39)
[2022-07-10 09:00] VITALS: BP 114/65
[2022-07-10] MEDS: HEPARIN SODIUM (PORCINE) 5000 UNITS/ML 1ML VIAL SC SCH ×2 (10:00→22:34)
[2022-07-10] MEDS: SODIUM CHLOR 0.9% PF (SALINE LOCK) 10ML VIAL/SYR IV SCH ×2 (10:00→22:32)
[2022-07-10 13:00] VITALS: BP 114/69
[2022-07-10 17:00] VITALS: BP 123/71
[2022-07-10 21:41] VITALS: BP 110/69
[2022-07-11] MEDS: VANCOMYCIN 1GM/250ML 250 ML IV SCH ×2 (01:00→06:14)
[2022-07-11] MEDS: CEFEPIME 1GM/ 50ML 50 ML IV SCH ×3 (01:38→16:56)
[2022-07-11 04:36] VITALS: BP 126/74
[2022-07-11] MEDS: ACCU-CHEK COMFORT CURVE STRIP VI SCH ×4 (06:24→22:07)
[2022-07-11] MEDS: InsuLIN REG 1unit/0.01ml Soln (100units/ml) SC SCH ×4 (06:26→22:06)
[2022-07-11 08:00] VITALS: BP 114/72
[2022-07-11 08:43] VITALS: BP 114/72
[2022-07-11] MEDS: SODIUM CHLOR 0.9% PF (SALINE LOCK) 10ML VIAL/SYR IV SCH ×2 (09:02→22:05)
[2022-07-11] MEDS: HEPARIN SODIUM (PORCINE) 5000 UNITS/ML 1ML VIAL SC SCH ×2 (09:03→22:06)
[2022-07-11] MEDS: ZINC SULFATE 220mg CAP or TAB PO SCH (11:15)
[2022-07-11] MEDS: ASCORBIC ACID 500 MG TAB PO SCH ×2 (11:15→22:05)
[2022-07-11] MEDS: CHOLECALCIFEROL (VITD3) 2,000 UNIT CAP/TAB PO SCH (11:15)
[2022-07-11 12:37] VITALS: BP 125/72
[2022-07-11 16:43] VITALS: BP 118/72
[2022-07-11 22:11] VITALS: BP 122/75
[2022-07-12] MEDS ORDERED: VANCOMYCIN 1GM/250ML 250 ML IV ONE
[2022-07-12] MEDS: CEFEPIME 1GM/ 50ML 50 ML IV SCH ×2 (01:59→09:28)
[2022-07-12 04:34] VITALS: BP 118/72
[2022-07-12] MEDS: ACCU-CHEK COMFORT CURVE STRIP VI SCH ×2 (06:25→12:49)
[2022-07-12] MEDS: InsuLIN REG 1unit/0.01ml Soln (100units/ml) SC SCH ×2 (06:34→12:56)
[2022-07-12 06:53] LABS: Basophils # (auto) 0.1 10 ^3/uL (0-0.2); Basophils % (auto) 0.9 % (0.0-2.0); Eosinophils # (auto) 0.5 10 ^3/uL (0-0.8); Eosinophils % (auto) 3.5 % (0.0-7.0); Hemoglobin 9.5 g/dL (13.5-17.5); Lymphocytes # (auto) 1.7 10 ^3/uL (0.4-5.4); Lymphocytes % (auto) 12.6 % (10.0-50.0); Mean Corpuscular Hemoglobin 27.5 pg (28.0-32.0); Mean Corpuscular Hgb Conc. 32.9 g/dL (32.0-36.0); Mean Corpuscular Volume 83.7 fL (80.0-100.0); Monocytes # (auto) 1.2 10 ^3/uL (0-1.3); Monocytes % (auto) 8.5 % (0.0-12.0); Neutrophils # (auto) 10.2 10 ^3/uL (1.6-8.6); Neutrophils % (auto) 74.5 % (37.0-80.0); Red Blood Cells 3.46 10^6/uL (4.5-5.90); Red Cell Distribution Width 15.1 % (11.8-14.3); White Blood Cell 13.7 10^3/uL (4.4-10.8)
[2022-07-12 07:29] LABS: Potassium 5.1 mmol/L (3.5-5.1)
[2022-07-12 07:33] LABS: BUN/Creatinine Ratio 20.5; Magnesium 2.4 mg/dL (1.6-2.6)
[2022-07-12] MEDS: ASCORBIC ACID 500 MG TAB PO SCH (09:15)
[2022-07-12] MEDS: CHOLECALCIFEROL (VITD3) 2,000 UNIT CAP/TAB PO SCH (09:16)
[2022-07-12] MEDS: ZINC SULFATE 220mg CAP or TAB PO SCH (09:16)
[2022-07-12] MEDS: SODIUM CHLOR 0.9% PF (SALINE LOCK) 10ML VIAL/SYR IV SCH (09:16)
[2022-07-12 09:18] VITALS: BP 124/71
[2022-07-12] MEDS: HEPARIN SODIUM (PORCINE) 5000 UNITS/ML 1ML VIAL SC SCH (09:25)
[2022-07-12 12:48] VITALS: BP 124/71
[2022-07-12] MEDS ORDERED: VANCOMYCIN 1GM/250ML 250 ML IV SCH (16:00)
[2022-07-12 16:57] VITALS: BP 129/77
== END 2022-07-12 18:14 | DRG 474 ==
LOC: ER 07:08 → OVERFLOW 11:55 → CENTRAL 20:34
PROVIDERS: ADMIT Registered Nurse; ATTEND Internal Medicine
PROC: 02HV33Z Insertion of Infusion Device into Superior Vena Cava, Percutaneous Approach (ICD-10-PCS; principal; 2022-07-04)
PROC: B548ZZA Ultrasonography of Superior Vena Cava, Guidance (ICD-10-PCS; 2022-07-04)
PROC: 0Y6M0Z0 Detachment at Right Foot, Complete, Open Approach (ICD-10-PCS; 2022-07-05)
DX: M72.6 Necrotizing fasciitis (principal); N17.0 Acute kidney failure with tubular necrosis; U07.1 COVID-19; L03.115 Cellulitis of right lower limb; M86.8X7 Other osteomyelitis, ankle and foot; E11.621 Type 2 diabetes mellitus with foot ulcer; E11.69 Type 2 diabetes mellitus with other specified complication; L97.519 Non-pressure chronic ulcer of other part of right foot with unspecified severity; E11.22 Type 2 diabetes mellitus with diabetic chronic kidney disease; H91.3 Deaf nonspeaking, not elsewhere classified; N18.31 Chronic kidney disease, stage 3a; E66.01 Morbid (severe) obesity due to excess calories; D64.9 Anemia, unspecified; F15.90 Other stimulant use, unspecified, uncomplicated; B95.62 Methicillin resistant Staphylococcus aureus infection as the cause of diseases classified elsewhere; G47.00 Insomnia, unspecified; I12.9 Hypertensive chronic kidney disease with stage 1 through stage 4 chronic kidney disease, or unspecified chronic kidney disease; J44.9 Chronic obstructive pulmonary disease, unspecified; L97.529 Non-pressure chronic ulcer of other part of left foot with unspecified severity; Z68.33 Body mass index [BMI] 33.0-33.9, adult
CPT/HCPCS: 36415; 36569; 71045; 71046; 73700; 73718; 80048; 80053; 80202; 80307; 81001; 82565; 82962; 83036; 83605; 83735; 85025; 85610; 85652; 85730; 86141; 87040; 87070; 87075; 87077; 87081; 87186; 87205; 87426; 93005; 93925; 93926; 93970; 93971; 96361; 96365; 96375; G0378; J0690; J1815; J2001; J2250; J2405; J2704; J3490